=== PATIENT | male | born 1985 | race Caucasian/White ===

== ENCOUNTER → 2017-06-23 09:29 | Outpatient (CLI) | payer BC, SELFPAY ==
--- NOTE | 2017-06-23 10:08 | XR_ITS ---
XR scoliosis survey COMPARISON: AP chest 03/01/2012 HISTORY: Midline back pain TECHNIQUE: Scoliosis survey FINDINGS: There is minimal levoscoliotic curvature between T1 and T9 measuring approximate 5 to 6 degrees. There is no scoliotic curvature of the lumbar spine. All thoracic and lumbar vertebrae appear intact and is no significant degenerative change or other abnormality.. IMPRESSION: Very minor scoliotic curvature upper thoracic spine
== END ==
PROVIDERS: PCP Nurse Practitioner Family; Visit Provider Nurse Practitioner Family
DX: M54.9 Dorsalgia, unspecified (principal)
CPT/HCPCS: 72081

== ENCOUNTER 2017-11-16 08:30 | Outpatient (RCR) | payer BC, SELFPAY | END 2017-11-16 08:31 | disposition home or self-care (01) | LOC: PT 08:30 | PROVIDERS: Family Provider Internal Medicine Adolescent Medicine; PCP Nurse Practitioner Family; Visit Provider Orthopaedic Surgery | DX: M54.2 Cervicalgia (principal) | CPT/HCPCS: 97010; 97014; 97110; 97140; 97163; G0283 ==

== ENCOUNTER → 2018-05-28 10:54 | Outpatient (POV) | payer BC, SELFPAY | PROVIDERS: Visit Provider Specialist | DX: R25.1 Tremor, unspecified (principal); R20.2 Paresthesia of skin; R20.0 Anesthesia of skin | CPT/HCPCS: 95886; 95910 ==

== ENCOUNTER 2018-12-31 10:11 | Outpatient (RCR) | payer BC, SELFPAY | END 2018-12-31 10:15 | disposition home or self-care (01) | LOC: PT 10:11 | PROVIDERS: Visit Provider Neurological Surgery | DX: Q07.00 Arnold-Chiari syndrome without spina bifida or hydrocephalus (principal) | CPT/HCPCS: 97010; 97014; 97035; 97110; 97163; G0283 ==

== ENCOUNTER → 2019-03-28 09:53 | Outpatient (CLI) | payer BC, SELFPAY ==
--- NOTE | 2019-03-28 09:57 | XR_ITS ---
PROCEDURE: XR MULTIPLE SPINE 6+V CLINICAL INDICATION: ACUTE MIDLINE THORACIC/LUMBAR PAIN WITH SCIATICA, NECK PAIN COMPARISON: No exams were available for comparison FINDINGS: There straightening of the normal curvature. There has been previous anterior cervical fusion of C5, C6 and C7. Oblique films show no significant neural on either side. Thoracic spine: Films show normal curvature and alignment. All thoracic vertebrae intact Lumbar spine: There is mild diffuse levo scoliotic curvature. There is mild disc space narrowing at the L3-4 and L4-5 levels. There are hypertrophic facet changes at the L4-5 and L5-S1 levels. There is no pars defect. The SI joints are normal. IMPRESSION: Postsurgical changes cervical spine, normal thoracic spine, moderate hypertrophic facet changes lower lumbar spine as noted along mild degenerate disc disease L3-4 and L4-5 Dictated by: Dr. Marcin Peres MD 03/28/2019 11:[address] aMrcin Peres MD in [place] 03/28/2019 11:50
== END ==
PROVIDERS: PCP Nurse Practitioner Family; Visit Provider Nurse Practitioner Family
DX: M54.2 Cervicalgia (principal); M54.6 Pain in thoracic spine; M54.42 Lumbago with sciatica, left side; M54.41 Lumbago with sciatica, right side; R20.0 Anesthesia of skin
CPT/HCPCS: 72084

== ENCOUNTER → 2019-04-05 08:58 | Outpatient (CLI) | payer BC, SELFPAY ==
--- NOTE | 2019-04-05 09:00 | MR_ITS ---
PROCEDURE: MR HEAD/BRAIN WO/W CON CLINICAL INDICATION: BLURRED VISION, BRAIN STEM COMPRESSION, HEADACHE COMPARISON: SINUS CT SINUS (MAX-FACIAL W/O CONT) from 09/27/[address] SINUS (MAX-FA from 09/27/[address] HEAD W/O CONTRAST from 09/27/2012 TECHNIQUE: Routine technique including contrasted images. A total of 25 cc of ProHance contrast was utilized. FINDINGS: There are no areas of restricted diffusion. There is no acute hemorrhage or mass or extra-axial fluid collection. Ventricles are normal. There is some prominence of the subarachnoid space and sulci along the anterior inferior right temporal lobe. Although this study is not optimal for bone detail there could be some dysplasia of the greater wing of the sphenoid bone on the right. Also noted is defect with associated fluid signal in the right mastoid area. There are no areas of abnormal enhancement. Again identified is the prominence of the subarachnoid space surrounding the intra orbital portion of the optic nerves bilaterally. There is no evidence of empty sella or mass-effect upon the orbital globes and therefore no other findings to suggest intracranial hypertension. Area of the foramen magnum shows there is crowding and pointing of the cerebellar tonsils which extend below the foramen magnum for a distance of 11 millimeters. There is no definite mass effect upon the cervical medullary junction. Visualized vessels are patent. There is mucosal thickening in the floor of the left maxillary sinus. 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 There is no enhancement to suggest optic glioma or meningioma. However considering possible dysplasia of the right greater wing of the sphenoid bone, correlate to rule out neurofibromatosis type 1. Consider surgical consultation for this finding. Focal atrophic changes involving the cortex of the anterior tip of the right temporal lobe. Probable postoperative findings of the right temporal bone with some fluid or mucosal thickening in the operative defect on the right. There is no enhancement in this area. Dictated by: Yinka Collins 04/05/2019 10:37 Electronically signed by Yinka Collins in [place] 04/05/2019 10:37
== END ==
PROVIDERS: PCP Nurse Practitioner Family; Visit Provider Nurse Practitioner Family
DX: R51 Headache (principal); H53.8 Other visual disturbances; G93.5 Compression of brain
CPT/HCPCS: 70553; A9576

== ENCOUNTER → 2019-11-21 09:55 | Outpatient (CLI) | payer BC, SELFPAY ==
--- NOTE | 2019-11-21 10:01 | XR_ITS ---
PROCEDURE: XR CERVICAL SPINE 5V CLINICAL INDICATION: CERVICALGIA, MERLIN EXTREMITY NUMBNESS, RU EXTREMITY NUMBNESS COMPARISON: CR CS5 CERVICAL SPINE 4 OR 5 VIEWS from 10/28/2016 FINDINGS: Normal alignment. Anterior bone plate is present at C5-C6 and C7 with good alignment. No acute fracture or dislocation. There are bilateral cervical ribs. There is degenerative disc disease at C3-C4 No lytic or blastic change. Mild foraminal narrowing noted on the right at C2-C3 and C3-C4 and on the left at C3-C4. Other findings:None. IMPRESSION: Postsurgical changes with degenerative disc disease at C3-C4 with bilateral foraminal narrowing at C3-C4 and on the right at C2-C3 Bilateral cervical ribs Dictated b Paul Mendoza MD 11/21/2019 12:03 Paul Mendoza MD in [place] 11/21/2019 12:03
== END ==
PROVIDERS: PCP Nurse Practitioner Family; Visit Provider Nurse Practitioner Family
DX: M54.2 Cervicalgia (principal); R20.0 Anesthesia of skin
CPT/HCPCS: 72050

== ENCOUNTER → 2019-12-05 07:48 | Outpatient (CLI) | payer BC, SELFPAY ==
--- NOTE | 2019-12-05 | MR_ITS ---
PROCEDURE: MR HEAD/BRAIN WO CON CLINICAL INDICATION: LEFT UPPER EXTREMITY NUMBNESS Pt. C/o h/a with blurred vision and left upper extremity numbness. Prior MRI BRAIN 04/05/2019 COMPARISON: MR MR HEAD/BRAIN WO/W CON from 04/05/2019 TECHNIQUE: Routine multiplanar multi echo sequences are performed without gadolinium enhancement. FINDINGS: No evidence of acute infarction. No midline shift, mass effect, intracranial hemorrhage, or hydrocephalus. Dural ectasia once again noted involving the optic nerves. The cerebellopontine angles, cerebellum, and brainstem have an unremarkable appearance. Defect within the right mastoid sinus with fluid in the right mastoid region again noted unchanged. There is mild prominence of the temporal horn of the right lateral ventricle which is unchanged. Mild focal atrophy of the anterior tip of the right temporal lobe unchanged. Questionable dysplastic changes of the greater wing of the sphenoid on the right is once again noted. Chiari 1 malformation is once again noted with inferior extension of the cerebellar tonsils extending 10 mm below the level of the foramen magnum. This is stable. No hydrocephalus. The 4th ventricle has an unremarkable appearance. No sinus air-fluid level. A retention cyst is present in the floor the left maxillary sinus. IMPRESSION: 1. Overall no significant change compared to the previous exam. No acute finding. 2. Chiari 1 malformation. 3. 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 4. Suspect postsurgical changes of the right mastoid. Dictated by: Paul Mendoza MD 12/06/2019 10:14 Paul Mendoza MD in [place] 12/06/2019 10:14
== END ==
PROVIDERS: PCP Nurse Practitioner Family; Visit Provider Nurse Practitioner Family
DX: M54.2 Cervicalgia (principal); R20.0 Anesthesia of skin; Q07.00 Arnold-Chiari syndrome without spina bifida or hydrocephalus; Z98.890 Other specified postprocedural states
CPT/HCPCS: 70551

== ENCOUNTER → 2020-06-12 09:20 | Outpatient (CLI) | payer BC, SELFPAY ==
--- NOTE | 2020-06-12 09:26 | XR_ITS ---
PROCEDURE: XR ELBOW RT MIN 3V CLINICAL INDICATION: MASS OF RT ELBOW COMPARISON: No exams were available for comparison FINDINGS: No fracture or dislocation. No lytic or blastic change. There is normal mineralization. The joint spaces are well-preserved. No significant degenerative/arthritic changes. No erosive changes evident. Other findings:There is a partially calcified enthesophyte at the olecranon process with some calcification noted just proximal to this area and may be due to calcification within the triceps tendon. IMPRESSION: 1. 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 Otherwise negative Dictated by: Paul Mendoza MD 06/12/2020 10:16 Paul Mendoza MD in [place] 06/12/2020 10:16
== END ==
PROVIDERS: PCP Nurse Practitioner Family; Visit Provider Nurse Practitioner Family
DX: R22.31 Localized swelling, mass and lump, right upper limb (principal)
CPT/HCPCS: 73080